=== PATIENT | male | born 1950 | race Caucasian/White ===

== ENCOUNTER → 2018-02-19 | Outpatient (CLI) | payer SELFPAY ==
[~2018-02-19] MED LIST: ASPI81EC PO; ATOR40TA PO; CITA20 PO; CLOP75 PO; GABA300 PO; HYDACE5325 PO; HYDCHL25 PO; INS70/30PN SUBQ; INSLI100I SC; INSUASPI; INSUASPI SC; INSULANPEN; LISI20 PO; LISI5 PO; METF500 PO; METPRE4DP PO; NAPR500EC PO; OMEP20ER PO; SIMV10 PO; SIMV40 PO; SIMV80 PO; Ventolin/Prove6.7 GM; ZOLP10 PO
[2018-02-19 18:31] LABS: Source, Urine Clean Catch
[2018-02-19 18:46] LABS: Appearance, Urine Clear (Clear); Bilirubin, Urine Neg (Neg); Blood, Urine Neg (Neg); Color, Urine Yellow (P-Yellow); Glucose Qualitative, Urine 4+ (Neg); Ketones, Urine Neg (Neg); Leukocyte Esterase, Urine Neg (Neg); Nitrite, Urine Neg (Neg); Protein, Urine 2+ (Neg); Specific Gravity, Urine 1.015 (1.003-1.022); Urobilinogen, Urine NORM (Normal); pH, Urine 6.5 (5.0-8.0)
[2018-02-19 18:58] LABS: Bacteria Rare /hpf; Mucus Light (0-Heavy); Red Blood Cells, Urine 0-2 /hpf (0-2); Squamous Epithelial Cells Rare /hpf (Few); White Blood Cells, Urine 0-2 /hpf (0-5)
== END | disposition home or self-care (01) ==
LOC: EDSTATUS 14:43 → LAB RH 18:17
DX: N39.0 Urinary tract infection, site not specified (principal)
CPT/HCPCS: 81001; 87086

== ENCOUNTER → 2018-02-19 | Outpatient (CLI) | payer SELFPAY ==
[2018-02-19 15:23] LABS: Hematocrit 38.3 % (37.0-53.0); Mean Corpuscular HGB 30.1 pg (26.0-34.0); Mean Corpuscular HGB Conc 33.9 g/dL (31.5-36.5); Mean Corpuscular Volume 89 fL (80-100); Mean Platelet Volume 10.9 fL (9.1-12.4); Platelet Count 192 K/mm3 (150-400); RDW Coefficient Variation 13.3 % (11.7-14.2); RDW Standard Deviation 43.7 fL (35.1-46.3); Red Blood Cell Count 4.32 M/mm3 (4.30-5.90); White Blood Cell Count 8.33 K/mm3 (4.00-11.30)
[2018-02-19 16:00] LABS: Alanine Aminotransfer (ALT/SGP 26 U/L (12-78); Albumin, Blood 3.4 g/dL (3.4-5.0); Alk Phos 81 U/L (50-136); Anion Gap 7 mmol/L (6-16); Aspartate Aminotrans (AST/SGOT 11 U/L (12-37); Bilirubin, Total 0.5 mg/dL (0.1-1.0); Blood Urea Nitrogen 18 mg/dL (8-24); Bun/Creatinine Ratio 22.4 (12.0-20.0); CO2, Blood 27 mmol/L (21-32); Chloride, Blood 104 mmol/L (98-108); Globulin, Blood 3.4 g/dL (2.2-4.0); Glomerular Filtration Rate >60 (60-); Glucose, Blood 136 mg/dL (70-99); Potassium, Blood 4.8 mmol/L (3.5-5.5); Sodium, Blood 138 mmol/L (136-145); Total Protein, Blood 6.8 g/dL (6.4-8.2)
== END | disposition home or self-care (01) ==
LOC: EDSTATUS 14:39 → LAB RH 15:16
DX: I25.10 Atherosclerotic heart disease of native coronary artery without angina pectoris (principal); I10 Essential (primary) hypertension
CPT/HCPCS: 80053; 85027

== ENCOUNTER 2019-04-21 10:26 | Emergency (ER) | payer OTHER ==
[~2019-04-21] VITALS: Ht 185.4 cm; Wt 89.8 kg
[2019-04-21 11:16] LABS: Source, Urine Catheter
[2019-04-21 11:21] LABS: Appearance, Urine Cloudy (Clear); Bilirubin, Urine Neg (Neg); Blood, Urine 5+ (Neg); Glucose Qualitative, Urine 4+ (Neg); Ketones, Urine Neg (Neg); Leukocyte Esterase, Urine 2+ (Neg); Nitrite, Urine Neg (Neg); Protein, Urine 3+ (Neg); Urobilinogen, Urine NORM (Normal)
[2019-04-21 12:04] LABS: Color, Urine Red (P-Yellow)
[2019-04-21 12:07] LABS: Red Blood Cells, Urine 50-100 /hpf (0-2); White Blood Cells, Urine 25-50 /hpf (0-5)
[2019-04-21 12:08] LABS: Bacteria Many /hpf; Squamous Epithelial Cells Rare /hpf (Few)
== END 2019-04-21 11:36 | disposition home or self-care (01) ==
LOC: ER 10:26
PROVIDERS: Emergency Medicine
DX: T83.091A Other mechanical complication of indwelling urethral catheter, initial encounter (principal); N13.9 Obstructive and reflux uropathy, unspecified; Z79.899 Other long term (current) drug therapy; Z79.4 Long term (current) use of insulin; Z79.52 Long term (current) use of systemic steroids; E11.9 Type 2 diabetes mellitus without complications; I10 Essential (primary) hypertension; F17.200 Nicotine dependence, unspecified, uncomplicated
CPT/HCPCS: 51702; 81001; 87077; 87086; 87186; 99283-25